=== PATIENT | female | born 1950 | race Caucasian/White ===

== ENCOUNTER 2024-03-08 08:23 | Emergency (ER) | payer MEDICARE, OTHER, SELFPAY ==
[2024-03-08 08:25] VITALS: BP 180/97
--- NOTE | 2024-03-08 08:45 | ED.GENMED ---
History of Present Illness
General
Chief Complaint: Abdominal Symptoms
Time Seen by Provider: 03/08/24 08:31
History of Present Illness
History of Present Illness:
73-year-old female with history of recurrent diverticulitis status post sigmoid colectomy presents to the emergency department for evaluation of lower abdominal/pelvic discomfort ongoing for the past 2 days associated with increased bowel frequency.
Denies any diarrhea but states she has had at least 10 small bowel movements over the past 24 hours. Constant urge to defecate as well as urinate. No fevers or chills. No nausea or vomiting. Denies dysuria
Past History
Past History
ED Past Medical History: Hypercholesterolemia, Hypothyroidism and Other (Chronic pelvic pain, rectocele, cystocele, diverticulitis)
ED Past Surgical History: Gynecological (Rectocele and cystocele repair, ovaries and fallopian tubes removed) and Tonsilectomy
Social History
Tobacco: Non-smoker
Alcohol: Occasional
Drug: None
Personal:
Living: with family
Employment: Retired
Family History
Family History: Other (Dad who had a stroke.) and Unable to obtain
Review of Systems
Review of Systems
Allergies reviewed?: Yes
All Other Systems: ROS reviewed and negative except as documented in HPI and ROS
Phy Exam
Physical Exam
Physical Exam:
GEN: Well appearing, NAD, WDWN
HEENT: Oral mucosa moist, no scleral icterus
Cardiac: Regular rate
Lung: No respiratory distress, no tachypnea
GI: Soft diffusely tender in all 4 quadrants, no focal tenderness, no rigidity
MSK: No gross deformity or injuries
Skin: Good color, no pallor or jaundice, no rashes
Neuro: AO x3, moves all extremities freely
Psych: Calm, cooperative
Course
Orders/Labs/Results
Orders:
Orders
03/08/24 08:45
CT Abd/Pel (IV only)-DH only Urgent
Comment:
Reason For Exam: LLQ pain
03/08/24 08:53
Complete Blood Count/With Diff Urgent
Comprehensive Metabolic Panel Urgent
03/08/24 09:07
Urinalysis Reflex To Culture Urgent
Date Specimen was Collected: 03/08/24
Time Specimen was Collected: 09:04
Abnormal Lab Results
03/08/24
08:53
MPV 11.1 H fL
(7.4-10.4)
Absolute Lymphs (auto) 0.9 L 10^3/uL
(1.2-3.4)
Neutrophils % 78.8 H %
(42.2-75.2)
Lymphocytes % 13.6 L %
(20.5-51.1)
Glucose 124 H mg/dl
(70-99)
03/08/24 08:53
03/08/24 08:53
Vital Signs
Initial and Last Documented VS:
Initial Vital Signs
Temp Pulse Resp BP Pulse Ox
98.2 F 105 16 180/97 100
03/08/24 08:25 03/08/24 08:25 03/08/24 08:25 03/08/24 08:25 03/08/24 08:25
Last Documented Vital Signs
Temp Pulse Resp BP Pulse Ox
98.2 F 105 16 129/83 94
03/08/24 08:25 03/08/24 08:25 03/08/24 08:25 03/08/24 10:00 03/08/24 10:00
MDM/Problems Addressed
MDM/Problems Addressed:
Imaging involvement, labs reassuring. Recommend laxatives
*Critical Care Note
Total Time (30-74mins, 75-104mins- exclusive of procedures): Not Applicable
ED Attending Note
-
Portions of this chart may have been created with voice recognition software.� Occasional wrong word or��sound alike� substitutions may have occurred due to the inherent limitations of voice recognition software.
Discharge Plan
Departure
Patient Disposition: Home (Routine Discharge)
Date of Disposition: 03/08/24
Time of Disposition: 11:07
Patient with high blood pressure during this ER visit?: No
Discharge Problem:
Constipation, Insomnia
Instructions: Constipation, Adult (DC)
Prescriptions:
New
polyethylene glycol 3350 [Miralax] 17 gram/dose powder
17 g PO DAILY PRN (Reason: Constipation) Qty: 238 0RF
trazodone 50 mg tablet
50 - 100 mg PO HS PRN (Reason: Sleep) Qty: 20 0RF
No Action
acetaminophen [Tylenol Extra Strength] 500 MG tablet
1,000 mg PO Q6HPRN PRN (Reason: PAIN)
levothyroxine 112 MCG tablet
112 mcg PO DAILY
Saccharomyces boulardii 250 MG capsule
250 mg PO DAILYPRN PRN (Reason: GI upset/Indigestion)
cholecalciferol (vitamin D3) 2,000 UNITS tablet
2,000 units PO DAILY
estradiol [Vagifem] 10 MCG tablet
10 mcg VAG .THREE TIMES A WEEK
levofloxacin [Levaquin] 250 MG tablet
250 mg PO DAILY Qty: 5 0RF
Referrals:
Jemal Clements Jr., DO [Family Provider] -
Interventions
Interventions:
*Risk Screen - Suicide Last Done: 03/08/24 08:25
*General Assessment Last Done: 03/08/24 08:25
*Neglect/Abuse Screening Last Done: 03/08/24 08:25
*ED COVID-19 Vaccine History Last Done: 03/08/24 09:00
*Nursing Disposition Last Done: 03/08/24 11:17
CT-Sjizlw-Ybpsddepvw Assessment Last Done: 03/08/24 09:00
Discharge Date and Time
Discharge Date/Time: 03/08/24 11:18
Print Language: ARMENIAN
[2024-03-08 09:02] VITALS: BP 129/80
[2024-03-08 09:11] LABS: % Basophils 0.6 % (0-2); % Eosinophils 0.3 % (0-6); % Immature Granulocytes 0.5 % (0-0.5); % Lymphocytes 13.6 % (20.5-51.1); % Monocytes 6.2 % (1.7-9.3); % Neutrophils 78.8 % (42.2-75.2); Absolute Lymphocytes 0.9 10^3/uL (1.2-3.4); Absolute Monocytes 0.4 10^3/uL (0.1-0.6); Hematocrit 41.5 % (37.0-47.0); Hemoglobin 13.9 g/dL (12.0-16.0); Mean Corp Hgb Conc. 33.5 g/dL (33.0-37.0); Mean Corpuscular Hgb 28.8 pg (27.0-31.0); Mean Corpuscular Volume 86.1 fL (81.0-99.0); Mean Platelet Volume 11.1 fL (7.4-10.4); Nucleated Red Blood Cells % 0 %; Platelet Count 216 10^3/uL (130-400); Red Blood Cell Count 4.82 10^6/uL (4.20-5.40); Red Cell Dist. Width 11.9 % (11.5-14.5); White Blood Cell Count 6.3 10^3/uL (4.8-10.8)
[2024-03-08 09:18] LABS: Urine Albumin Trace (Neg - Trace); Urine Bilirubin Negative (Negative); Urine Character Clear (Clear); Urine Color Yellow; Urine Glucose Negative (Negative); Urine Ketone Negative (Negative); Urine Leukocyte Negative (Negative); Urine Nitrite Negative (Negative); Urine Occult Blood Negative (Negative); Urine Urobilinogen Negative (Neg - 1+)
[2024-03-08 09:55] LABS: ALT (SGPT) 22 U/L (0-35); AST (SGOT) 24 U/L (14-36); Albumin 4.7 g/dl (3.5-5.0); Alkaline Phosphatase 91 U/L (38-126); Blood Urea Nitrogen 14 mg/dl (7-17); Calcium 9.7 mg/dl (8.4-10.2); Carbon Dioxide 25 mmol/L (22-30); Chloride 103 mmol/L (98-107); Glucose 124 mg/dl (70-99); Potassium 4.1 mmol/L (3.5-5.1); Sodium 140 mmol/L (135-145); Total Bilirubin 0.7 mg/dl (0.2-1.3); Total Protein 7.9 g/dl (6.3-8.2); eGFR > 60.00
[2024-03-08 10:00] VITALS: BP 129/83
== END 2024-03-08 11:18 | disposition home or self-care (01) ==
LOC: EMR 08:23
PROVIDERS: Physician Assistant; EMERGENCY PHYSICIAN Emergency Medicine; FAMILY PHYSICIAN Family Medicine
DX: K59.00 Constipation, unspecified (principal); G47.00 Insomnia, unspecified; E78.00 Pure hypercholesterolemia, unspecified; E03.9 Hypothyroidism, unspecified; Z82.3 Family history of stroke; Z90.49 Acquired absence of other specified parts of digestive tract; Z90.722 Acquired absence of ovaries, bilateral
CPT/HCPCS: 99284; 74177; 80053; 81003; 85025; Q9967

== ENCOUNTER → 2024-04-24 08:05 | Outpatient (REF) | payer MEDICARE, OTHER, SELFPAY | LOC: RAD 08:05 | PROVIDERS: ATTENDING PHYSICIAN Surgery; FAMILY PHYSICIAN Family Medicine | DX: R19.8 Other specified symptoms and signs involving the digestive system and abdomen (principal) | CPT/HCPCS: 74270 ==

== ENCOUNTER → 2024-07-11 10:41 | Outpatient (REF) | payer MEDICARE, OTHER, SELFPAY | LOC: RAD 10:41 | PROVIDERS: ATTENDING PHYSICIAN Internal Medicine Cardiovascular Disease; FAMILY PHYSICIAN Family Medicine | DX: I25.10 Atherosclerotic heart disease of native coronary artery without angina pectoris (principal); I65.23 Occlusion and stenosis of bilateral carotid arteries | CPT/HCPCS: 93880 ==

== ENCOUNTER 2024-07-30 06:14 | Day surgery (SDC) | payer MEDICARE, OTHER, SELFPAY | END 2024-07-30 09:55 | disposition home or self-care (01) | LOC: GI 06:14 | PROVIDERS: ATTENDING PHYSICIAN Surgery | DX: Z12.11 Encounter for screening for malignant neoplasm of colon (principal); K57.30 Diverticulosis of large intestine without perforation or abscess without bleeding; R19.4 Change in bowel habit; Z98.0 Intestinal bypass and anastomosis status | CPT/HCPCS: G0105 ==

== ENCOUNTER → 2024-12-16 12:43 | Outpatient (REF) | payer MEDICARE, OTHER, SELFPAY ==
[2024-12-16 13:25] LABS: Hematocrit 39.2 % (37.0-47.0); Hemoglobin 12.8 g/dL (12.0-16.0); Mean Corp Hgb Conc. 32.7 g/dL (33.0-37.0); Mean Corpuscular Volume 87.5 fL (81.0-99.0); Nucleated Red Blood Cells % 0 %; Platelet Count 202 10^3/uL (130-400); Red Cell Dist. Width 12.2 % (11.5-14.5)
[2024-12-16 14:01] LABS: ALT (SGPT) 20 U/L (0-35); AST (SGOT) 21 U/L (14-36); Albumin 4.7 g/dl (3.5-5.0); Alkaline Phosphatase 83 U/L (38-126); Blood Urea Nitrogen 18 mg/dl (7-17); Calcium 9.7 mg/dl (8.4-10.2); Carbon Dioxide 29 mmol/L (22-30); Chloride 102 mmol/L (98-107); Glucose 101 mg/dl (70-99); Magnesium 2.2 mg/dl (1.6-2.3); Potassium 4.6 mmol/L (3.5-5.1); Sodium 138 mmol/L (135-145); Total Protein 8.1 g/dl (6.3-8.2); eGFR > 60.00
== END ==
LOC: REG 12:43
PROVIDERS: ATTENDING PHYSICIAN Internal Medicine Cardiovascular Disease; FAMILY PHYSICIAN Family Medicine
DX: E03.9 Hypothyroidism, unspecified (principal); R79.89 Other specified abnormal findings of blood chemistry; R53.82 Chronic fatigue, unspecified
CPT/HCPCS: 36415; 80053; 83735; 84443; 85025